=== PATIENT | female | born 1955 | race Caucasian/White ===

== ENCOUNTER → 2019-04-11 | Outpatient (REF) | payer BC | LOC: M LAB LCGH 12:15 | PROVIDERS: ATTEND Nurse Practitioner Adult Health | DX: N39.0 Urinary tract infection, site not specified (principal) ==

== ENCOUNTER → 2019-04-12 | Outpatient (REF) | payer BC | LOC: M LAB LCGH 13:19 | PROVIDERS: ATTEND Nurse Practitioner Adult Health | DX: N39.0 Urinary tract infection, site not specified (principal) ==

== ENCOUNTER → 2019-04-13 | Outpatient (REF) | payer BC | LOC: M LAB LCGH 11:25 | PROVIDERS: ATTEND Nurse Practitioner Adult Health | DX: N39.0 Urinary tract infection, site not specified (principal) ==

== ENCOUNTER → 2019-04-26 | Outpatient (REF) | LOC: M LAB LCGH 13:46 | PROVIDERS: ATTEND Nurse Practitioner Family | DX: L85.8 Other specified epidermal thickening (principal); B07.9 Viral wart, unspecified ==